=== PATIENT | female | born 1955 | race Caucasian/White ===

== ENCOUNTER 2019-02-12 00:34 | Emergency (ER) | payer MEDICARE, MEDICAID ==
[~2019-02-12] VITALS: Ht 157.5 cm; Wt 90.9 kg
[2019-02-12] MEDS ORDERED: METF-960 PO (00:37)
[2019-02-12] MEDS ORDERED: ATOR20TA86 PO (00:37)
[2019-02-12] MEDS ORDERED: LISI-659 PO (00:37)
[2019-02-12] MEDS ORDERED: ASPI81 PO (00:37)
[2019-02-12] MEDS ORDERED: GABA-531 PO (00:37)
[2019-02-12] MEDS ORDERED: ACETAMINOPHEN 325 MG TABLET PO ONE (01:45)
[2019-02-12 02:10] VITALS: BP 139/77
== END 2019-02-12 02:55 | disposition home or self-care (01) ==
LOC: EMS 00:36
DX: S46.911A Strain of unspecified muscle, fascia and tendon at shoulder and upper arm level, right arm, initial encounter (principal); E11.9 Type 2 diabetes mellitus without complications; E78.00 Pure hypercholesterolemia, unspecified; I10 Essential (primary) hypertension; Z88.5 Allergy status to narcotic agent; Z79.84 Long term (current) use of oral hypoglycemic drugs; Z79.82 Long term (current) use of aspirin; W01.0XXA Fall on same level from slipping, tripping and stumbling without subsequent striking against object, initial encounter; Y93.89 Activity, other specified; Y92.89 Other specified places as the place of occurrence of the external cause; Y99.8 Other external cause status